=== PATIENT | male | born 1980 | race Caucasian/White ===

== ENCOUNTER 2016-07-24 07:55 | Emergency (ER) | payer BC ==
[2016-07-24] MEDS ORDERED: Albuterol 0.083% 2.5 MG/3 ML Neb Soln NEB ONE (08:42)
--- NOTE | 2016-07-24 08:47 | EDM.PDOC ---
ED HISTORY OF PRESENT ILLNESS - General Chief Complaint: Respiratory Problem Stated Complaint: COUGH AND CONGESTION Time Seen by Provider: 07/24/16 08:27 - History of Present Illness INITIAL COMMENTS - FREE TEXT/NARRATIVE: 36-year-old male comes in with cough congestion and wheezing. States he was ill for 5 weeks ago and after antibiotics and a steroid shot finally getting better and then about 5 days ago started getting sick again. He has had nasal and sinus congestion with drainage. Cough mostly nonproductive. He states he is coughing a lot during the night at work. He starts wheezing with the cough and and also with exertion. No fever or chills. No major sore throat. He does smoke. - Related Data Allergies/ADRs: Allergies Allergy/AdvReac Type Severity Reaction Status Date / Time No Known Allergies Allergy Verified 07/24/16 08:30 Home Meds: Home Meds Albuterol [IJD: Albuterol HFA] 2 puff .XX Q4HR PRN #8 gm 07/24/16 [Rx] Prednisone [IMW: predniSONE] 20 mg PO WITHBREAKFAST #10 tab 07/24/16 [Rx] Past Medical History - Past Health History Medical/Surgical History: Denies Medical/Surgical History HEENT History: Reports: Other (see below) Other HEENT History: esophogus spasm Respiratory History: Reports: Bronchitis, recurrent - Past Surgical History Musculoskeletal Surgical History: Reports: Other (see below) Other Musculoskeletal Surgeries/Procedures:: bilateral hip reconstruction. Social & Family History - Family History Cardiac: Reports: Bypass, CT - Tobacco Use Smoking Status *Q: Current Every Day Smoker Years of Tobacco use: 15 Packs/Tins Daily: 0.5 - Caffeine Use Caffeine Use: Reports: Coffee, Energy drinks, Soda - Recreational Drug Use Recreational Drug Use: No ED ROS GENERAL - Review of Systems Review Of Systems: See Below Constitutional: Denies: fever, chills HEENT: Reports: Sinus problem. Denies: Throat pain Respiratory: Reports: Shortness of Breath, Wheezing, Cough, Sputum (Occasion) Cardiovascular: Denies: Chest pain GI/Abdominal: Denies: Abdominal pain, Nausea, Vomiting Musculoskeletal: Reports: no symptoms Skin: Reports: no symptoms Neurological: Reports: No Symptoms ED EXAM, GENERAL - Physical Exam Exam: See Below General Appearance: alert, no apparent distress Throat/Mouth: Normal inspection, Normal oropharynx Head: atraumatic. No: facial swelling Neck: supple, full range of motion. No: lymphadenopathy (L), lymphadenopathy (R ) Respiratory/Chest: no respiratory distress, lungs clear, normal breath sounds, wheezing (Mild expiratory wheezing). No: rhonchi Cardiovascular: regular rate, rhythm Extremities: normal inspection Neurological: alert, oriented, no motor/sensory deficits Skin Exam: Warm, Dry, Ecchymosis Course - Vital Signs Last Recorded V/S: Last Vital Signs Temp 97.6 F 07/24/16 09:08 Pulse 78 07/24/16 09:08 Resp 18 07/24/16 09:08 BP 146/105 H 07/24/16 09:08 Pulse Ox 98 07/24/16 09:08 - Orders/Labs/Meds Orders: Active Orders 24 hr Category Date Time Status RT Aerosol Therapy [RC] ASDIRECTED Care 07/24/16 08:42 Active Meds: Medications Discontinued Medications Generic Name Dose Route Start Last Admin Trade Name Freq PRN Reason Stop Dose Admin Albuterol 2.5 mg 07/24/16 08:42 07/24/16 08:49 Proventil Neb Soln NEB 07/24/16 08:43 2.5 mg ONETIME ONE Administration - Re-Assessments/Exams Free Text/Narrative Re-Assessment/Exam: 07/24/16 08:46 Were given neb treatment at this time, discharge instructions as documented Departure - Departure Time of Disposition: 08:44 Disposition: Home, Self-Care 01 Condition: fair Clinical Impression: Viral upper respiratory infection, Wheezing Prescriptions: Albuterol [IJD: Albuterol HFA] 2 puff .XX Q4HR PRN #8 gm PRN Reason: Wheezing Prednisone [IMW: predniSONE] 20 mg PO WITHBREAKFAST #10 tab Instructions: Upper Respiratory Infection, Adult, [id number] Referrals: PCP,None [Primary Care Provider] - Forms: ED Department Discharge Additional Instructions: You've come down with a new viral upper respiratory infection. Fortunately there is no evidence of pneumonia or sinus infection at this time. An antibiotic at this time will not kill the virus and will not help you get better and he sooner. Therefore treatment has to be in that the symptoms. Albuterol inhaler 2 puffs every 4-6 hours as needed severe cough or wheezing. Vaporizer or steam is usually helpful. Prednisone as prescribed for the next 5 days. Decongestant as needed. If you start blowing or spitting out yellowish- green drainage from your nose and sinuses or coughing up a lot of colored drainage from ear lungs been on antibiotic will be more likely to be helpful. At that point in time fill the Z-Will prescription provided to you at this time. It will be best if you can get through this illness without an antibiotic. Followup clinic as needed. Return to ED as needed - My Orders Last 24 Hours: My Active Orders 07/24/16 08:42 RT Aerosol Therapy [RC] ASDIRECTED - Assessment/Plan Last 24 Hours: My Active Orders 07/24/16 08:42 RT Aerosol Therapy [RC] ASDIRECTED
[2016-07-24 09:13] VITALS: BP 146/105
== END 2016-07-24 09:10 | disposition home or self-care (01) ==
LOC: JD.ED 07:55
DX: J06.9 Acute upper respiratory infection, unspecified (principal); R06.2 Wheezing; F17.210 Nicotine dependence, cigarettes, uncomplicated
CPT/HCPCS: 94664; 99283; 99283-25